=== PATIENT | male | born 1955 | race Caucasian/White ===

== ENCOUNTER 2017-02-21 11:54 | Emergency (ER) | payer OTHER ==
[~2017-02-21] VITALS: Ht 182.9 cm; Wt 127.0 kg
[~2017-02-21 11:54] MED LIST: AMLODIPINE BES10 MG PO; ATORVASTATIN CA20 M1 PO; LISINOPRIL AND1 TAB PO; LODINE200 MG PO
[2017-02-21] MEDS ORDERED: ULORIC40 MG PO (12:05)
--- NOTE | 2017-02-21 13:19 | Emergency Room Report ---
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 N Clinical Suspician of Infection? N Mental Status: 1 - Regular (Normal Baseline) Sepsis Risk:Low Sepsis Risk Have you (or family members/close friends) recently traveled outside the [place]? N If Yes, where/when: Have you had exposure to infectious disease within the past month? N TB? Other? Specify: Linear, gaping 8 cm laceration to palmar aspect of left wrist, linear, s/p dog bite from his own dogs, whose shots are UTD. He has no numbness or weakness. Wound irrigated on arrival to ED and given Augmentin PO. ALLERGIES Coded Allergies: No Known Allergies (02/21/17) Home Medications Reported Medications Amlodipine Besylate (Amlodipine Besylate) 10 MG PO DAILY #30 Atorvastatin Calcium 20 MG PO QHS #30 Febuxostat (Uloric) 40 MG PO DAILY LISINOPRIL/HYDROCHLOROTHIAZIDE (Lisinopril-Hctz 20-12.5 MG Tab) 1 TAB PO DAILY #30 History Medical History General CAD? No Angina: No [place]: No Hypertension? Yes Hyperlipidemia? Yes CHF? No DVT? No PE? No COPD? No Asthma? No Anemia? No GERD? No Gastric ulcers? No GI Bleed? No Hernia? No Thyroid Problems? No Hypothyroidism? No CVA? No Seizures? No Diabetes? No Renal Insuffiency? No End Stage Renal Disease? No UTI? No Stones? No BPH? No GB Disease: No Nephritic Syndrome? No Asplenia? No Hepatitis? No Sickle Cell Disease? No Arthritis? Yes Migraines? No Cataracts? No Glaucoma? No MRSA? No HIV? No TB? No Anxiety? No Depression? No Cancer? No More? Yes Additional hx: RA Immunization Hx DT/Tetanus [id number] Surgical Hx Previous Surgery?Y BACK SURGERY Social History Smoking Hx Smoker: Former Smoker Tobacco: No Alcohol Alcohol: No Review of Systems All Other Systems Reviewed and Negative Skin see HPI Physical Exam Vital Signs Vital Signs Date Time Temp Pulse Resp B/P Pulse O2 O2 Flow FiO2 Ox Delivery Rate 02/21 1359 76 16 147/97 97 02/21 1320 76 16 134/94 94 02/21 1247 99 18 137/80 97 02/21 1156 98.2 100 18 136/95 97 General Appearance normal appearance, WD/WN, no apparent distress Eye Exam - bilateral eye normal exam, bilateral eye PERRL Respiratory Status Yes: trachea midline. No: respiratory distress. Cardiovascular normal peripheral pulses Extremities normal range of motion, normal capillary refill, 8 cm laceration, palmar aspect of left palm, no bleeding; positive tendon exposure, gaping wound, no FB; no bone exposure. Good ROM of each digit as well as wrist; well perfused digits that are fully sensate over r/u/m nerves as checked. Strength 5 Upper Ext (L) Neurologic alert, normal exam, no motor/sensory deficits, oriented x 3 Glascow Coma Scale Glascow Coma Scale Response Value EYE response: 4 Spontaneously 4 MOTOR response: 6 OBEYS 6 VERBAL response: 5 Oriented & Converses 5 Total 15 Skin intact (see above) Medical Decision Making LABS/Meds/Orders Pt receiving controlled substance in ED? No Results/Orders Current Medication Orders Sig/Trey Start time Last Medication Dose Route Stop Time Status Admin Amoxicillin/ 0 .STK-MED ONE 02/21 1356 DC Clavulanate Potassium PO Amoxicillin/ 500 MG ONCE ONE 02/21 1345 DC 02/21 Clavulanate Potassium PO 02/21 1346 1357 Lidocaine HCl 0 .STK-MED ONE 02/21 1316 DC .ROUTE Diphtheria/Pertussis/ 0 .STK-MED ONE 02/21 1232 DC Tetanus Vacc IM Diphtheria/Pertussis/ 0.5 ML ONCE ONE 02/21 1230 DC 02/21 Tetanus Vacc IM 02/21 1231 1245 Orders Procedure Date/time Status FOREARM-LT 02/21 1349 Active XRAY/CT/US XRAY/CT/US XRAY forearm XR interpretation by reviewed by me Xray Results no fracture seen (STS neg Fx neg FB) Consult MD Physician Consult Consult/PCP accepting MD Time Called 1350 Reason Pt. Condition, Transfer to facility (hand call ) Comments send to ER for hand call to evaluate per my d/w PA environmental science instructor at Departure Departure Time of Disposition 1408 Disposition DC/[facility] from ER to [facility] Clinical Impression Primary Impression: Dog bite of left wrist Qualifiers: Encounter type: initial encounter Qualified Code: S61.552A - Open bite of left wrist, initial encounter Condition STABLE ED Critical Care Critical Care No at 1407
--- NOTE | 2017-02-21 13:19 | Emergency Room Report ---
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 N Clinical Suspician of Infection? N Mental Status: 1 - Regular (Normal Baseline) Sepsis Risk:Low Sepsis Risk Have you (or family members/close friends) recently traveled outside the [place]? N If Yes, where/when: Have you had exposure to infectious disease within the past month? N TB? Other? Specify: Linear, gaping 8 cm laceration to palmar aspect of left wrist, linear, s/p dog bite from his own dogs, whose shots are UTD. He has no numbness or weakness. Wound irrigated on arrival to ED and given Augmentin PO. ALLERGIES Coded Allergies: No Known Allergies (02/21/17) Home Medications Reported Medications Amlodipine Besylate (Amlodipine Besylate) 10 MG PO DAILY #30 Atorvastatin Calcium 20 MG PO QHS #30 Febuxostat (Uloric) 40 MG PO DAILY LISINOPRIL/HYDROCHLOROTHIAZIDE (Lisinopril-Hctz 20-12.5 MG Tab) 1 TAB PO DAILY #30 History Medical History General CAD? No Angina: No [place]: No Hypertension? Yes Hyperlipidemia? Yes CHF? No DVT? No PE? No COPD? No Asthma? No Anemia? No GERD? No Gastric ulcers? No GI Bleed? No Hernia? No Thyroid Problems? No Hypothyroidism? No CVA? No Seizures? No Diabetes? No Renal Insuffiency? No End Stage Renal Disease? No UTI? No Stones? No BPH? No GB Disease: No Nephritic Syndrome? No Asplenia? No Hepatitis? No Sickle Cell Disease? No Arthritis? Yes Migraines? No Cataracts? No Glaucoma? No MRSA? No HIV? No TB? No Anxiety? No Depression? No Cancer? No More? Yes Additional hx: RA Immunization Hx DT/Tetanus [id number] Surgical Hx Previous Surgery?Y BACK SURGERY Social History Smoking Hx Smoker: Former Smoker Tobacco: No Alcohol Alcohol: No Review of Systems All Other Systems Reviewed and Negative Skin see HPI Physical Exam Vital Signs Vital Signs Date Time Temp Pulse Resp B/P Pulse O2 O2 Flow FiO2 Ox Delivery Rate 02/21 1359 76 16 147/97 97 02/21 1320 76 16 134/94 94 02/21 1247 99 18 137/80 97 02/21 1156 98.2 100 18 136/95 97 General Appearance normal appearance, WD/WN, no apparent distress Eye Exam - bilateral eye normal exam, bilateral eye PERRL Respiratory Status Yes: trachea midline. No: respiratory distress. Cardiovascular normal peripheral pulses Extremities normal range of motion, normal capillary refill, 8 cm laceration, palmar aspect of left palm, no bleeding; positive tendon exposure, gaping wound, no FB; no bone exposure. Good ROM of each digit as well as wrist; well perfused digits that are fully sensate over r/u/m nerves as checked. Strength 5 Upper Ext (L) Neurologic alert, normal exam, no motor/sensory deficits, oriented x 3 Glascow Coma Scale Glascow Coma Scale Response Value EYE response: 4 Spontaneously 4 MOTOR response: 6 OBEYS 6 VERBAL response: 5 Oriented & Converses 5 Total 15 Skin intact (see above) Medical Decision Making LABS/Meds/Orders Pt receiving controlled substance in ED? No Results/Orders Current Medication Orders Sig/Trey Start time Last Medication Dose Route Stop Time Status Admin Amoxicillin/ 0 .STK-MED ONE 02/21 1356 DC Clavulanate Potassium PO Amoxicillin/ 500 MG ONCE ONE 02/21 1345 DC 02/21 Clavulanate Potassium PO 02/21 1346 1357 Lidocaine HCl 0 .STK-MED ONE 02/21 1316 DC .ROUTE Diphtheria/Pertussis/ 0 .STK-MED ONE 02/21 1232 DC Tetanus Vacc IM Diphtheria/Pertussis/ 0.5 ML ONCE ONE 02/21 1230 DC 02/21 Tetanus Vacc IM 02/21 1231 1245 Orders Procedure Date/time Status FOREARM-LT 02/21 1349 Active XRAY/CT/US XRAY/CT/US XRAY forearm XR interpretation by reviewed by me Xray Results no fracture seen (STS neg Fx neg FB) Consult MD Physician Consult Consult/PCP accepting MD Time Called 1350 Reason Pt. Condition, Transfer to facility (hand call ) Comments send to ER for hand call to evaluate per my d/w PA animal surgeon at Departure Departure Time of Disposition 1408 Disposition DC/[facility] from ER to [facility] Clinical Impression Primary Impression: Dog bite of left wrist Qualifiers: Encounter type: initial encounter Qualified Code: S61.552A - Open bite of left wrist, initial encounter Condition STABLE ED Critical Care Critical Care No at 1406
[2017-02-21 14:28] VITALS: BP 139/89
--- NOTE | 2017-02-21 15:24 | RADIOLOGY REPORT PS360 ---
FOREARM-LT CLINICAL INDICATION: LACERATION, DOG BITE ORDERING PHYSICIAN: Padmini Hsieh MD PATIENT AGE: 61 years COMPARISON: None FINDINGS: No fracture or dislocation. No radio opaque foreign body. There is laceration along the distal forearm anteriorly with a small amount of soft tissue gas noted dystrophic calcification is present at the ulnar styloid medially. IMPRESSION: Laceration of the distal forearm with small amount of soft tissue gas. No acute bony injury or foreign body
== END 2017-02-21 14:29 | disposition short-term general hospital (02) ==
LOC: ER 11:54
DX: S56.822A Laceration of other muscles, fascia and tendons at forearm level, left arm, initial encounter (principal); W54.0XXA Bitten by dog, initial encounter; Y92.017 Garden or yard in single-family (private) house as the place of occurrence of the external cause; I10 Essential (primary) hypertension; Z23 Encounter for immunization; Z87.891 Personal history of nicotine dependence